=== PATIENT | female | born 1975 | race Caucasian/White ===

== ENCOUNTER 2017-01-23 15:27 | Emergency (ER) | payer MEDICAID, OTHER ==
[2017-01-23 15:38] VITALS: BP 126/72
[2017-01-23] MEDS ORDERED: Tetan/Diph/Pertus SYR(Tdap)* 0.5 ML SYR(BOOSTRIX) use SYR IM ONE (16:09)
--- NOTE | 2017-01-23 16:11 | UC ---
Skin Complaint HPI - HPI Summary HPI Summary: stepped on a throne branch pw to bottom of right foot through her shoe - History of Current Complaint Chief Complaint: UCSkin Time Seen by Provider: 01/23/17 15:34 Stated Complaint: PUNCTURE WOUND ON BOTTOM OF FOOT Hx Obtained From: Patient Hx Last Menstrual Period: 3 wks ago ?: No Onset/Duration: Sudden Onset, Lasting Days, Still Present Timing: Constant Onset Severity: Moderate Current Severity: Moderate Pain Intensity: 7 Pain Scale Used: 0-10 Numeric Location: Discrete - bottom of right foot near 1st metatarsal Character: Pain Aggravating: Other - steps Alleviating: Nothing Associated Signs & Symptoms: Positive: Negative Related History: Trauma - pw to bottom of right foot - Allergy/Home Medications Allergies/Adverse Reactions: Allergies Allergy/AdvReac Type Severity Reaction Status Date / Time antibiotic Allergy Fever Uncoded 01/23/17 15:39 Review of Systems Constitutional: Negative Skin: Other - pw to bottom of right foot Eyes: Negative ENT: Negative Respiratory: Negative Cardiovascular: Negative Gastrointestinal: Negative Genitourinary: Negative Motor: Negative Neurovascular: Negative Musculoskeletal: Arthralgia - bottom of right foot Neurological: Negative Psychological: Negative All Other Systems Reviewed And Are Negative: Yes PMH/Surg Hx/FS Hx/Imm Hx Previously Healthy: Yes - Surgical History Surgical History: None - Family History Known Family History: Positive: None - Social History Occupation: Employed Full-time Lives: With Family Alcohol Use: Occasionally Substance Use Type: None Smoking Status (MU): Light Every Day Tobacco Smoker - Immunization History Most Recent Tetanus Shot: 5-6 yrs ago Physical Exam Triage Information Reviewed: Yes Appearance: Well-Appearing, No Pain Distress, Well-Nourished Vital Signs: Initial Vital Signs Temp 97.3 F 01/23/17 15:34 Pulse 104 01/23/17 15:34 Resp 12 01/23/17 15:34 BP 126/72 01/23/17 15:34 Pulse Ox 100 01/23/17 15:34 Vital Signs Reviewed: Yes Eye Exam: Normal Eyes: Positive: Conjunctiva Clear ENT Exam: Normal ENT: Positive: Normal ENT inspection, Hearing grossly normal. Negative: Nasal congestion, Nasal drainage, Trismus, Muffled/hoarse voice Dental Exam: Normal Neck exam: Normal Neck: Positive: Supple, Nontender Respiratory Exam: Normal Respiratory: Positive: Chest non-tender, No respiratory distress, No accessory muscle use Cardiovascular Exam: Normal Cardiovascular: Positive: RRR, Pulses Normal, Brisk Capillary Refill Musculoskeletal Exam: Normal Musculoskeletal: Positive: Strength Intact, ROM Intact, No Edema Neurological Exam: Normal Neurological: Positive: Alert, Muscle Tone Normal Psychological Exam: Normal Skin Exam: Normal Skin: Positive: Other - pw no streaking erythema, some tenderness with palpations Diagnostics - Radiology No standard instances Xray Interpretation: No Acute Changes Radiology Interpretation Completed By: Radiologist Course/Dx - Course Course Of Treatment: update tetanus, warm soaks, levoquin, post op shoe bulky dressing tylenol, ibuprofen, follow with pcp - Differential Diagnoses - Skin Complaint Differential Diagnoses: Cellulitis, Impetigo, Systemic Illness - Diagnoses Provider Diagnoses: PW to right foot, update tetanus Discharge - Discharge Plan Condition: Stable Disposition: HOME Prescriptions: Levofloxacin TAB* [Levaquin 500 Tab*] 500 mg PO DAILY #7 tab Patient Education Materials: Ibuprofen (By mouth), Levofloxacin (By mouth), Puncture Wound (ED), Warm Compress or Soak (ED) Referrals: [facility] [place] [facility] [Outside] - If Needed
--- NOTE | 2017-01-23 16:40 | RAD ---
INDICATION: Trauma. COMPARISON: None. TECHNIQUE: 3 views of the right foot were obtained. FINDINGS: The adequately corticated bones are properly aligned. Joint spaces appear maintained. No fracture, dislocation or focal bony abnormality is seen. No foreign body is seen beneath the first metatarsophalangeal joint or elsewhere in the foot. IMPRESSION: NORMAL RADIOGRAPH OF THE RIGHT FOOT VISUALIZATION OF THE SUBCUTANEOUS FOREIGN BODY. If the patient's symptoms persist, follow-up imaging is recommended.
== END 2017-01-23 16:51 | disposition home or self-care (01) ==
LOC: UCEAST 15:27
DX: S91.331A Puncture wound without foreign body, right foot, initial encounter (principal); W26.8XXA Contact with other sharp object(s), not elsewhere classified, initial encounter; Y93.9 Activity, unspecified; Y92.9 Unspecified place or not applicable; Z23 Encounter for immunization; Z88.1 Allergy status to other antibiotic agents; F17.210 Nicotine dependence, cigarettes, uncomplicated
CPT/HCPCS: 90471; 90715; 99203; G0463

== ENCOUNTER 2017-02-25 11:14 | Emergency (ER) | payer OTHER ==
[2017-02-25 13:28] VITALS: BP 100/79
--- NOTE | 2017-02-25 14:15 | UC ---
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 STEPPED ON A THORN AND HAD PW TO RIGHT FOOT 01/23. SEEN HERE AND HAD TDAP BOOSTED. RX FOR LEVAQUIN X 7 DAYS. PT TOOK 4 DAYS AND THEN WENT OUT OF TOWN FOR 10 DAYS AND FORGOT TO TAKE THE REST. STATES THE SWELLING IMPROVED A BIT BUT NEVER FULLY RESOLVED. RIGHT 1ST MCP IS SWOLLEN, RED AND TENDER. NO FEVER. NO DRAINAGE. PW SITE IS WELL HEALED. - History of Current Complaint Chief Complaint: UCSkin Stated Complaint: FOOT PAIN Time Seen by Provider: 02/25/17 13:59 Hx Obtained From: Patient Hx Last Menstrual Period: 02/13/17 Onset/Duration: Gradual Onset, Lasting Weeks, Still Present Severity Initially: Moderate Severity Currently: Moderate Pain Intensity: 3 Pain Scale Used: 0-10 Numeric Aggravating Factor(s): Standing, Ambulation Alleviating Factor(s): Nothing Able to Bear Weight: Yes - WITH PAIN - Allergies/Home Medications Allergies/Adverse Reactions: Allergies Allergy/AdvReac Type Severity Reaction Status Date / Time Sulfamethoxazole Allergy See Comment Verified 02/25/17 11:57 w/Trimethoprim [From Bactrim] PMH/Surg Hx/FS Hx/Imm Hx Previously Healthy: Yes - Surgical History Surgical History: None - Family History Known Family History: Positive: None Negative: Hypertension, Diabetes - Social History Alcohol Use: Occasionally Substance Use Type: None Smoking Status (MU): Light Every Day Tobacco Smoker Amount Used/How Often: 5cig/day - Immunization History Most Recent Tetanus Shot: 5-6 yrs ago Review of Systems Constitutional: Negative Skin: Other - ERYTHEMA Respiratory: Negative Cardiovascular: Negative Gastrointestinal: Negative Musculoskeletal: Arthralgia, Decreased ROM, Edema All Other Systems Reviewed And Are Negative: Yes Physical Exam Triage Information Reviewed: Yes Appearance: Well-Appearing, No Pain Distress, Well-Nourished Vital Signs: Initial Vital Signs Temp 97.7 F 02/25/17 11:57 Pulse 75 02/25/17 11:57 Resp 16 02/25/17 11:57 Pulse Ox 100 02/25/17 11:57 Vital Signs Reviewed: Yes Eyes: Positive: Conjunctiva Clear ENT: Positive: Hearing grossly normal Neck: Positive: Supple Respiratory: Positive: No respiratory distress, No accessory muscle use Cardiovascular: Positive: Pulses Normal Abdomen Description: Positive: Soft Musculoskeletal: Positive: ROM Limited @ - RIGHT GREAT TOE, Edema @ - RIGHT 1ST MCP JOINT, Other: - TTP RIGHT 1ST TOE/MCP Neurological: Positive: Alert Skin: Positive: Other - ERYTHEMA RIGHT GREAT TOE/MCP. Negative: rashes Lower Extremity Course/Dx - Course Course Of Treatment: FOOT XRAY PENDING. SIGNED OFF PT CARE TO DR. ZAMUDIO AT SHIFT CHANGE - Differential Dx/Diagnosis Provider Diagnoses: RIGHT FOOT/1ST MCP PAIN/SWELLING - Physician Notifications Discussed Patient Care With: Robel Zamudio - SIGNED OFF PT CARE AT SHIFT CHANGE Time Discussed With Above Provider: 14:33 Discharge - Discharge Plan Condition: Stable Disposition: OTHER Discharge Disposition Comment: SIGNED OFF PT CARE AT SHIFT CHANGE TO DR. ZAMUDIO
--- NOTE | 2017-02-25 14:49 | RAD ---
HISTORY: Redness and swelling right MCP joint COMPARISONS: January 23, 2017 VIEWS: 3, Frontal, lateral, and oblique views of the right foot FINDINGS: BONE DENSITY: Normal. BONES: There is no displaced fracture. There is no appreciable erosion or periosteal reaction. JOINTS: There is no arthropathy. ALIGNMENT: There is no dislocation. SOFT TISSUES: Unremarkable. OTHER FINDINGS: None. IMPRESSION: NO ACUTE OSSEOUS INJURY. PLAIN FILM FINDINGS OF OSTEOMYELITIS ARE RELATIVELY LATE FINDINGS. IF THERE IS PERSISTENT CLINICAL CONCERN FOR OSTEOMYELITIS, RECOMMEND CORRELATION WITH FOLLOWUP IMAGING, THREE-PHASE BONE SCANNING, WHITE BLOOD CELL SCAN, AND/OR MRI OF THE AFFECTED REGION..
--- NOTE | 2017-02-25 14:52 | UC ---
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 SEEN HERE AND HAD TDAP BOOSTED. RX FOR LEVAQUIN X 7 DAYS. PT TOOK 4 DAYS AND THEN WENT OUT OF TOWN FOR 10 DAYS AND FORGOT TO TAKE THE REST. STATES THE SWELLING IMPROVED A BIT BUT NEVER FULLY RESOLVED. RIGHT 1ST MCP IS SWOLLEN, RED AND TENDER. NO FEVER. NO DRAINAGE. PW SITE IS WELL HEALED. 02/25 15:00 41 YEAR OLD FEMALE WAS SIGNED OVER TO ME BY DR RAY. SHE STEPPED ON A THORN AND CONTINUES TO HAVE LEFT BIG TOE SWELLING/PAIN. A XRAY WAS ORDERED. - History of Current Complaint Chief Complaint: UCSkin Stated Complaint: FOOT PAIN Time Seen by Provider: 02/25/17 13:59 Hx Obtained From: Patient Hx Last Menstrual Period: 02/13/17 Onset/Duration: Gradual Onset, Lasting Weeks, Still Present Severity Initially: Moderate Severity Currently: Moderate Pain Intensity: 3 Pain Scale Used: 0-10 Numeric Aggravating Factor(s): Standing, Ambulation Alleviating Factor(s): Nothing Able to Bear Weight: Yes - WITH PAIN - Allergies/Home Medications Allergies/Adverse Reactions: Allergies Allergy/AdvReac Type Severity Reaction Status Date / Time Sulfamethoxazole Allergy See Comment Verified 02/25/17 11:57 w/Trimethoprim [From Bactrim] PMH/Surg Hx/FS Hx/Imm Hx Previously Healthy: Yes - Surgical History Surgical History: None - Family History Known Family History: Positive: None Negative: Hypertension, Diabetes - Social History Alcohol Use: Occasionally Substance Use Type: None Smoking Status (MU): Light Every Day Tobacco Smoker Amount Used/How Often: 5cig/day - Immunization History Most Recent Tetanus Shot: 5-6 yrs ago Review of Systems Constitutional: Negative Skin: Other - ERYTHEMA Eyes: Negative ENT: Negative Respiratory: Negative Cardiovascular: Negative Gastrointestinal: Negative Genitourinary: Negative Motor: Negative Neurovascular: Negative Musculoskeletal: Arthralgia, Decreased ROM, Edema Neurological: Negative Psychological: Negative All Other Systems Reviewed And Are Negative: Yes Physical Exam Triage Information Reviewed: Yes Appearance: Well-Appearing, No Pain Distress, Well-Nourished Vital Signs: Initial Vital Signs Temp 36.5 C 02/25/17 11:57 Pulse 75 02/25/17 11:57 Resp 16 02/25/17 11:57 Pulse Ox 100 02/25/17 11:57 Vital Signs Reviewed: Yes Eyes: Positive: Conjunctiva Clear ENT: Positive: Hearing grossly normal Neck: Positive: Supple Respiratory: Positive: No respiratory distress, No accessory muscle use Cardiovascular: Positive: Pulses Normal Abdomen Description: Positive: Soft Musculoskeletal: Positive: ROM Limited @ - RIGHT GREAT TOE, Edema @ - RIGHT 1ST MCP JOINT, Other: - TTP RIGHT 1ST TOE/MCP Neurological: Positive: Alert Skin: Positive: Other - ERYTHEMA RIGHT GREAT TOE/MCP. Negative: rashes Lower Extremity Course/Dx - Course Course Of Treatment: FOOT XRAY PENDING. SIGNED OFF PT CARE TO DR. ZAMUDIO AT SHIFT CHANGE. I WILL REFER HER TO ORTHOPEDICS FOR A MRI. XARY DID NOT SHOW A FOREIGN BODY. - Differential Dx/Diagnosis Provider Diagnoses: LEFT BIG TOE SWELLING/PAIN - Physician Notifications Time Discussed With Above Provider: 14:33 Discharge - Discharge Plan Condition: Stable Disposition: HOME Prescriptions: Amoxicillin/Clavulanate TAB* [Augmentin TAB 875*] 875 mg PO BID #20 tab Patient Education Materials: Soft Tissue Foreign Body (ED) Referrals: Mikhail Chavira MD [Medical Doctor] - No Primary Care Phys,NOPCP [Primary Care Provider] -
== END 2017-02-25 15:13 | disposition home or self-care (01) ==
LOC: UCEAST 11:14
DX: M79.89 Other specified soft tissue disorders (principal); M79.675 Pain in left toe(s); Z88.2 Allergy status to sulfonamides; F17.210 Nicotine dependence, cigarettes, uncomplicated
CPT/HCPCS: 99212; G0463